=== PATIENT | female | born 1980 | race Caucasian/White ===

== ENCOUNTER 2017-05-31 05:59 | Day surgery (SDC) | payer OTHER ==
[~2017-05-31] VITALS: Ht 167.6 cm; Wt 67.0 kg
[2017-05-31] VITALS (9 sets, daily range): BP systolic 118–149; BP diastolic 63–94; PULSE 56–68; RESP 14–21; O2SAT 96–100
[2017-05-31] MEDS: Lactated Ringer's 1,000 ML IV SCH ×2 (05:33→07:19)
--- NOTE | 2017-05-31 05:42 | HP PRE OP ---
[address] [address] PREOPERATIVE HISTORY AND PHYSICAL PATIENT: SUMA XAVIER : 1980 MR#: [id number] ADMIT: 05/31/2017 JOB ID: [id number] IDENTIFICATION: The patient is a 36-year-old, G4, P3, AB1, woman. CHIEF COMPLAINT: Progressive menorrhagia, requesting surgical intervention. HISTORY OF PRESENT ILLNESS: This patient has experienced progressive menorrhagia, with seven days of consistently heavy bleeding requiring two tampons or a very heavy pad, and accidents can occur unless she changes protection every 30-45 minutes or doubles up on protection. Workup has included pelvic examination and transvaginal sonography without any worrisome findings, also endometrial biopsy with finding of negative histology. Last Pap was also reportedly negative from April 2016. The patient requested surgical intervention as opposed to hormonal management of menorrhagia in that she has poorly tolerated and/or did not receive benefit from various hormonal trials. She requested endometrial ablation as an appropriate conservative therapeutic effort in hopes that this would alleviate her symptoms without having to do more major surgery such as hysterectomy. The patient has understood that endometrial ablation, i.e. via NovaSure technique, is a surgery. She realizes there are risks which include bleeding, infection, injury to the cervix or uterine wall with potential perforation, potential anesthetic risks, postoperative pain, or bleeding potential, and there is the possibility that ablation will not effectively resolve menorrhagia. She has understood the risks and limitations of the planned procedure, and all questions have been answered and no guarantees have been stated or implied. The patient signed informed consent for surgery of her own free will. In summary then, the patient will be admitted to [facility] on May 31, 2017, on which day she will undergo NovaSure ablation. PHYSICAL EXAMINATION: On admission weight 147 pounds. Blood pressure 116/74. Neck: No thyromegaly. Lungs: Clear to auscultation and percussion. Heart: Regular in rate and rhythm. Abdomen: Nontender. No mass. scarring noted. Pelvic examination: Prior exam demonstrated vulva, vagina and cervix without any obvious epithelial abnormality. Bimanual examination demonstrated no obvious uterine or adnexal mass, tenderness, or other problem. DIAGNOSTIC DATA: Preoperative labs pending at the time of this dictation. IMPRESSION: 1. Progressive menorrhagia, requesting surgical intervention. 2. Surgical history: a. Reproductive history: x3, tubal ligation at time of last , note also prior miscarriage. b. 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 c. Sinus wash (nasal flushing). 3. History of ovarian cyst (s). 4. Poor intolerance to past hormonal therapy. 5. No known drug allergies. 6. Family history of uterine bleeding issues (mother, grandmother). PLAN: The patient will be admitted to [facility] on May 31, 2017, on which day she will undergo NovaSure ablation.
[~2017-05-31 05:59] MED LIST: DOXY100C2 PO; Lactated Ringer's 1,000 ML IV SCH
[2017-05-31] MEDS ORDERED: Propofol 10,000 mCg/mL 20 mL Inj ONE (06:00)
[2017-05-31] MEDS ORDERED: Ondansetron 2 mg/mL 2 mL Inj ONE (06:00)
[2017-05-31] MEDS ORDERED: fentaNYL-PF 50 mCg/mL 2 mL Inj ONE (06:00)
[2017-05-31] MEDS ORDERED: Dexamethasone 4 mg/mL Inj ONE (06:00)
[2017-05-31 06:58] LABS: BASOPHILS % (AUTO) 0.2 % (0-3); EOSINOPHILS % (AUTO) 3.1 % (0-5); MONOCYTES % (AUTO) 8.2 % (4-12); Mean Corpuscular Hemoglobin 30.5 pg (27.0-35.0); Mean Corpuscular Volume 92.3 fL (81-100); NEUTROPHILS % (AUTO) 54.6 % (40-74); Platelet Count 219 bil/L (150-400)
[2017-05-31] MEDS ORDERED: Lactated Ringer's 500 ML IV PRN (07:18)
[2017-05-31] MEDS ORDERED: Lactated Ringer's 1,000 ML IV SCH (07:18)
--- NOTE | 2017-05-31 07:18 | PCM.HPANE ---
Patient Data Surgeon Admitting Provider: Attending Provider:Sanford Dominguez MD Primary Care Physician:Kaveh Other Provider:Torres Fuentes Anesthesia Reason for Visit Menorrhagia, Metrorrhagia Ht/WT & BMI Height (Feet): 5 Height (Inches): 6.00 Weight (Kilograms): 67.0 Body Mass Index 23.00 Allergies Coded Allergies: No Known Allergies (Unverified Allergy, Unknown, 05/25/17) Past Anesthesia History Anesthesia History: Denies:: Abnormal Airway, Anesthesia Reactions, Difficult Intubation, Fam Anesthesia Reaction Diabetes History Hx Diabetes?: No MRSA MRSA: No Medications Hypertension Medication: No Home Meds Incl Beta Anthony: No Reported Medications Doxycycline Hyclate 100 Mg [id number] Mg PO BID 05/30/17 Discontinued Reported Medications PNV CMB#95/FERROUS FUMARATE/FA-Expunged Drug, (-Expunged Drug, Do Not Renew!)1 Each Tablet1 Each PO AM 7 Days 01/04/12 History History of ENT Problems?: Yes HEENT History: Positive for:: Sinus Problem (sinus flushed 05/26 at ENT office , chronic infection on abx ) Denies:: Abnormal Airway Cataracts Difficult Intubation Dysphagia Glaucoma Hearing Problem TMJ Denture Type: None Teeth Condition: Within Normal Limits Hx of Heart Problems?: No Cardiovascular History: Denies:: AICD Abdominal Aortic Aneurism Atrial Fibrillation Cardiac Surgery Chest Pain Edema Heart Murmur Hypertension Irregular Heartbeat Pacemaker Peripheral Vascular Hx of Respiratory Problem?: No Respiratory History: Denies:: Asthma COPD Emphysema Oxygen Administration Pneumonia Tuberculosis Use of C-PAP Machine Use of Inhalers / NEBS Hx Neurologic Problems?: No Neurological History: Denies:: CVA Headaches Multiple Sclerosis Parkinson's Disease Seizures TIA Hx of GI Problems?: No Hx of Problems?: No Genitourinary History: Denies:: Kidney Stones Urinary Tract Infection Female Hx: Denies:: Currently Problems with Breasts? Skin History: Denies:: History Skin Disorders? Pressure Ulcers Hx Musculoskeletal Problems?: No Musculoskeletal History: Denies:: Back Injury Degenerative Joint Fibromyalgia Joint Replacement Musculoskeletal Trauma Myasthenia Gravis Osteoarthritis Systemic Lupus Psycho Social History: Denies:: Anxiety Hx Depression Hx Surgeries?: Yes (c sections x 2, tubal, pyloric stenosis, tonsil) Hx Any Other Health Problems?: Yes Other History: Denies:: Cancer Thyroid Disease History Blood Transfusions: Positive for:: Accept Blood Products? Denies:: Blood Transfusions Hx Diabetes: No Hx Alcohol Use: NoHx Substance Use: No Stop/Bang P-Blood Pressure: treated: No B- Body Mass Index > 35 kg/m2: No A- Age over 50: No N- Neck Large Circumference: No G- Gender Male: No SARA Risk Assessment: Low Risk, <3 Yes Risk Assessment Category Category 1A: Patient has history of documented sleep apnea, and HAS NOT received any narcotic, sedative or anesthesia administration during this stay. Category 1B: Patient has history of documented sleep apnea, and HAS received any narcotic , sedative or anesthesia administration during this stay Category 2: Patient has SUSPECTED Obstructive Sleep Apnea, and HAS received any narcotic , sedative or anesthesia administration during this stay. Category 3: Patient has SUSPECTED Obstructive Sleep Apnea and HAS NOT received narcotic, sedative or anesthesia administration during this stay. Category 4: Outpatient in Procedural Areas with known sleep apnea or who screen positive for High Risk via the STOP/BANG questionnaire. Exam Exam Vital Signs Vital Signs Date Time Temp Pulse Resp B/P Pulse Ox O2 Delivery O2 Flow Rate FiO2 05/31/17 06:34 36.8 59 16 134/94 100 Room Air General Appearance: Alert HEENT/AIRWAY: MP 2, Neck Movement (from, 3 fb) Meds/Labs/Diagnostics Admission Meds Current Medications Lactated Ringer's (Lr) 1,000 ml @ 150 mls/hr [id number] IV Last administered on t 05:33; Start 05/30/17 at 16:15; Stop 05/30/17 at 22:54; Status DC Labs Test 05/31/17 06:40 White Blood Count 4.9th/mm3 (3.8-10.1) Red Blood Count 4.00mil/mm3 (3.90-5.20) Hemoglobin 12.2g/dL (12.0-15.6) Hematocrit 36.9% (35.0-46.0) Mean Corpuscular Volume 92.3fL (81-100) Mean Corpuscular Hemoglobin 30.5pg (27.0-35.0) Mean Corpuscular Hemoglobin Concent 33.1% (32.0-37.0) Red Cell Distribution Width 14.1% (12.3-15.4) Platelet Count 219bil/L (150-400) Neutrophils (%) (Auto) 54.6% (40-74) Lymphocytes (%) (Auto) 33.7% (14-46) Monocytes (%) (Auto) 8.2% (4-12) Eosinophils (%) (Auto) 3.1% (0-5) Basophils (%) (Auto) 0.2% (0-3) Plan Impression Patient chart reviewed, patient interviewed and anesthestic plan with risks, benefits, and alternatives discussed, and informed consent obtained. NPO per Anesth. Guidelines: Yes ASA Physical Status: ASA1 Normal Healthy Anesthetic Plan: GA Bene/Risks/Altern/Consents: Yes HP Complete Prior to Induction: Yes Rojas Beaver MD May 31, 2017 07:18
[2017-05-31] MEDS ORDERED: fentaNYL-PF 50 mCg/mL 2 mL Inj IVPUSH PRN (07:20)
[2017-05-31] MEDS ORDERED: Ondansetron 2 mg/mL 2 mL Inj IVPUSH PRN ×2 (07:20→07:40)
[2017-05-31] MEDS ORDERED: EPHEDrine Sulfate 50 mg/mL Inj IVPUSH PRN (07:20)
[2017-05-31] MEDS ORDERED: Phenylephrine 10,000 mCg/mL Inj IVPUSH PRN (07:20)
[2017-05-31] MEDS ORDERED: HYDROmorphone 1 mg/mL Inj IVPUSH PRN ×2 (07:20→07:40)
[2017-05-31] MEDS ORDERED: Dexamethasone 4 mg/mL Inj IVPUSH PRN (07:20)
[2017-05-31] MEDS ORDERED: MetoCLOpramide 5 mg/mL 2 mL Inj IVPUSH PRN ×2 (07:20→07:40)
--- NOTE | 2017-05-31 08:23 | PCM.ANEP1 ---
Post Anesthesia PACU Phase 1 Assessment Vital Signs Vital Signs Date Time Temp Pulse Resp B/P Pulse Ox O2 Delivery O2 Flow Rate FiO2 05/31/17 08:20 56 16 132/76 98 Room Air 05/31/17 08:15 68 18 132/87 98 Room Air 05/31/17 08:10 37.1 65 14 149/86 100 Simple Mask 8 05/31/17 06:34 36.8 59 16 134/94 100 Room Air Anesthetic Administered: GA Level of Alertness: Awake, talking WADE's with Equal Strength: Yes Pain: No Nausea or Vomiting: No CV Function & Hydration Stable: Yes Airway Device: Oxygen Delivery: Simple Mask Lungs: Clear to Auscultation Dermatome Level: Full Sensation PACU Phase 2 Assessment Complications: No Follow up Care: N/A Patient Instructions Provided: N/A Rojas Beaver MD May 31, 2017 08:23
[2017-05-31] MEDS ORDERED: HYDROcodone-APAP 5-325 mg Tablet PO ONE (09:41)
--- NOTE | 2017-06-01 23:56 | OP ---
[address] [address] OPERATIVE REPORT PATIENT: SUMA XAVIER : 1980 MR#: [id number] ADMIT: 05/31/2017 JOB ID: [id number] DATE OF SURGERY: 05/31/2017 SURGEON: Sanford Dominguez MD. ANESTHESIA: General. PREOPERATIVE DIAGNOSIS(ES): Menorrhagia. POSTOPERATIVE DIAGNOSIS(ES): Menorrhagia. PROCEDURE PERFORMED: NovaSure ablation. FINDINGS AT SURGERY: Uterus sounded to 6.5 cm. There was scant bleeding associated with this case. It certainly is anticipated that patient will do very well during the postoperative timeframe. Her bleeding will be tracked over time, with high likelihood that she will have notable improvement. PROCEDURE: The patient was placed in supine position on the operating table and general anesthesia was induced. She was then repositioned into the low dorsal lithotomy position and prepped and draped in the usual sterile manner. After appropriate time-out, weighted speculum was placed against the posterior vaginal wall and a tenaculum on the anterior cervical lip and another on the posterior cervical lip. Uterus was sounded and cervical length also determined, and then was calculated to uterine cavity length. Uterine cavity length at 6.5 cm. Cervix was then dilated up to 7-8 mm and NovaSure apparatus was then advanced into the uterine cavity and uterine cavity width determined. Then, uterine cavity assessment was accomplished followed by NovaSure ablation in typical fashion. The patient was in Trendelenburg position. Instruments were then removed from the cervix and of course the NovaSure apparatus was removed from the cervix and uterus, and pressure was applied against the tenaculum sites until all bleeding ceased. Weighted speculum was then removed and sponge and instrument counts were all found to be correct. Bleeding was scant at this point. Patient is returned to supine position and awakened, and taken to recovery room. ESTIMATED BLOOD LOSS: Scant. COMPLICATIONS: None. PROGNOSIS: Good for surgical recovery.
== END 2017-05-31 23:59 | disposition home or self-care (01) ==
LOC: SAS 05:59
PROVIDERS: ATTEND Obstetrics & Gynecology
PROC: 0U5B7ZZ Destruction of Endometrium, Via Natural or Artificial Opening (ICD-10-PCS; principal; 2017-05-31 07:30)
DX: N92.0 Excessive and frequent menstruation with regular cycle (principal)
CPT/HCPCS: 36415; 58353; 85025; J1100; J1885; J2405; J3010; J7120